=== PATIENT | female | born 1970 | race Caucasian/White ===

== ENCOUNTER 2016-08-20 21:35 | Emergency (ER) | payer MEDICAID ==
[2016-08-20] MEDS ORDERED: HYOSCYAMINE SULFATE ODT 0.125 MG TAB.SUBL SL ONE ×2 (22:03→23:30)
--- NOTE | 2016-08-20 22:04 | Emergency Department Record ---
History of Present Illness - General Chief Complaint: Abdominal Pain Stated Complaint: ABD PAIN Time Seen by Provider: 08/20/16 21:36 Source: Patient Mode of Arrival: Ambulatory Limitations: No limitations - History of Present Illness Initial Comments: 46 yo female presents to ED with a CC of lower quadrant pain that began earlier this morning. Patient describes her pain as "cramping", reports previous JUAN CARLOS, cholecystectomy, denies appendectomy. Patient denies fevers, chills, or change in stools. Patient denies history of diverticulitis. MD Complaint: Abdominal pain Onset/Timin -: Hour(s) Location: [facility] Radiation: None Migration to: No migration Quality: Stabbing Consistency: Constant Improves With: Nothing Worsens With: Other Associated Symptoms: Denies other symptoms - Related Data Home Medications Medication Instructions Recorded Confirmed Last Taken Naproxen [Naprosyn] 500 mg PO Q12H PRN 08/20/16 08/20/16 Unknown Previous Rx's Medication Instructions Recorded Cyclobenzaprine HCl [Flexeril] 10 mg PO TID #20 tablet 04/06/16 Hyoscyamine Sulfate [Levsin-Sl] 0.25 mg SL Q8H PRN #10 tab.subl 08/20/16 Allergies Allergy/AdvReac Type Severity Reaction Status Date / Time No Known Drug Allergies Allergy Verified 08/20/16 21:43 Travel Screening - Travel/Exposure Within Last 30 Days Have you traveled within the last 30 days?: No - Travel Symptoms Symptom Screening: None Review of Systems Constitutional: Denies: Chills, Fever, Malaise, Night sweats Eyes: Denies: Eye discharge, Eye pain ENT: Denies: Congestion, Ear pain, Epistaxis Respiratory: Denies: Cough, Dyspnea Cardiovascular: Denies: Chest pain, Dyspnea on exertion Endocrine: Denies: Fatigue, Heat or cold intolerance Gastrointestinal: Reports: Abdominal pain. Denies: Constipation, Nausea, Vomiting Genitourinary: Denies: Dysuria, Frequency, Hematuria, Incontinence Musculoskeletal: Denies: Arthralgia, Back pain, Gout, Joint swelling Skin: Denies: Bruising, Change in color Neurological: Denies: Abnormal gait, Confusion, Headache, Seizure Psychiatric: Denies: Anxiety Hematological/Lymphatic: Denies: Anemia, Blood Clots Past Medical History - SOCIAL HISTORY Smoking Status: Light tobacco smoker (<10/day) - RESPIRATORY Hx Respiratory Disorders: Yes Hx Asthma: Yes - CARDIOVASCULAR Hx Cardio Disorders: Yes Comment:: High cholesterol - NEURO Hx Neuro Disorders: Yes Hx Headaches: Yes - GI Hx GI Disorders: Yes Hx Reflux: Yes - Hx Genitourinary Disorders: No - ENDOCRINE Hx Endocrine Disorders: No - MUSCULOSKELETAL Hx Musculoskeletal Disorders: No - PSYCH Hx Psych Problems: Yes Hx Anxiety: Yes Hx Depression: Yes - HEMATOLOGY/ONCOLOGY Hx Hematology/Oncology Disorders: No Family Medical History Any Significant Family History?: Yes Hx Cancer: Grandparents *Cancer Comment: Uncle-colon Hx Stroke: Mother Physical Exam - General General Appearance: Alert, Oriented x3, Cooperative, No acute distress Limitations: No limitations - Head Head exam: Atraumatic, Normocephalic, Normal inspection Head exam detail: negative: Abrasion, Contusion, Sanchez's sign, General tenderness, Hematoma, Laceration - Eye Eye exam: Normal appearance. negative: Conjunctival injection, Periorbital swelling, Periorbital tenderness, Scleral icterus - ENT Ear exam: negative: Auricular hematoma, Auricular trauma Nasal Exam: negative: Active bleeding, Discharge, Dried blood, Foreign body Mouth exam: negative: Drooling, Laceration, Muffled voice, Tongue elevation - Neck Neck exam: Normal inspection. negative: Meningismus, Tenderness - Respiratory Respiratory exam: Normal lung sounds bilaterally. negative: Rales, Respiratory distress, Rhonchi, Stridor - Cardiovascular Cardiovascular Exam: Regular rate, Normal rhythm, Normal heart sounds - GI/Abdominal GI/Abdominal exam: Soft, Tenderness, Other (TTP LLQ, LUQ, epigastric region on examination). negative: Rebound, Rigid - Rectal Rectal exam: Deferred - exam: Deferred - Extremities Extremities exam: Normal inspection. negative: Pedal edema, Tenderness - Back Back exam: Denies: CVA tenderness (R), CVA tenderness (L) - Neurological Neurological exam: Alert, Normal gait, Oriented X3 - Psychiatric Psychiatric exam: Normal affect, Normal mood - Skin Skin exam: Normal color. negative: Abrasion Type of lesion: negative: abrasion Course - Reevaluation(s) Reevaluation #1: 08/20/16 23:04 Labs reviewed and are grossly unremarkable for an acute process. Reevaluation #2: 08/20/16 23:07 Ct Abdomen and Pelvis: 3.8 cm cystic mass left colon, diverticulosis without diverticulitis. Post-op justin and hysterectomy, normal appendix. Reevaluation #3: 08/20/16 23:12 Patient reassessed, reports that her abdominal pain symptoms are greatly improved. Patient denies any vaginal discharge symptoms as well. Will d/c home on Levsin as needed with instructions to return to ED for any worsening of her symptoms, and to follow-up with her PCP for outpatient US of the abdomen in 2-4 weeks to further evaluate her ovarian cyst. Medical Decision Making - Lab Data Result diagrams: 08/20/16 22:08 08/20/16 22:08 Disposition Disposition: Discharge Clinical Impression: Abdominal pain Qualifiers: Abdominal location: generalized Qualified Code(s): R10.84 - Generalized abdominal pain Disposition: Home, Self-Care Condition: (2) Stable Instructions: Abdominal Pain (ED), Ovarian Cyst (ED) Additional Instructions: Return to ED if your symptoms worsen or if you have any concerns. Follow-up with your family doctor in 3-5 days as directed. Prescriptions: Hyoscyamine Sulfate [Levsin-Sl] 0.25 mg SL Q8H PRN #10 tab.subl PRN Reason: Abdominal Pain Forms: Patient Portal Access Time of Disposition: 23:09
[2016-08-20] MEDS ORDERED: 0.9 % SODIUM CHLORIDE 1000ML 1,000 ML IV SCH (22:15)
[2016-08-20 22:26] LABS: URINE APPEARANCE CLEAR; URINE BILIRUBIN NEGATIVE (NEGATIVE); URINE BLOOD TRACE-L (NEGATIVE); URINE COLOR YELLOW; URINE GLUCOSE (UA) NEGATIVE (NEGATIVE); URINE KETONE NEGATIVE (NEGATIVE); URINE LEUKOCYTE ESTERASE NEGATIVE (NEGATIVE); URINE NITRITE NEGATIVE (NEGATIVE); URINE PROTEIN NEGATIVE (NEGATIVE); URINE UROBILINOGEN 0.2 E.U./dL (0.20 - 1.00)
[2016-08-20 22:27] LABS: BASO % 0.3 % (0-6); EOS % 2.6 % (0-6); GRAN % 51.6 % (47-80); HEMATOCRIT 44.2 % (35.0-47.0); HEMOGLOBIN 14.6 gm/dl (11.6-16.0); LYMPH % 37.7 % (16-45); MEAN CELL VOLUME 91.3 fl (81-97); MEAN CORPUSCULAR HEMOGLOBIN 30.2 pg (27-33); MEAN PLATELET VOLUME 10.6 fl (7.4-10.4); MONO % 7.8 % (0-9); PLATELET COUNT 302 K/uL (130-400); RED BLOOD COUNT 4.84 M/uL (3.80-5.40); RED CELL DISTRIBUTION WIDTH 12.4 % (11.5-14.5); WHITE BLOOD COUNT W/O DIFF 12.2 K/uL (4.2-12.2)
[2016-08-20 22:35] LABS: ALB/GLOB RATIO 1.4 (1.1-1.8); ALBUMIN 3.9 gm/dL (3.5-5.0); ALKALINE PHOSPHATASE 95 U/L (38-126); ALT/SGPT 37 U/L (9-52); ANION GAP 7.9 (7-16); AST/SGOT 18 U/L (14-36); BILIRUBIN,TOTAL 0.23 mg/dL (0.2-1.3); BLOOD UREA NITROGEN 19 mg/dL (7-17); CARBON DIOXIDE 23.1 mmol/L (22-30); CREATININE 0.7 mg/dL (0.52-1.04); EST GLOMERULAR FILTRATION RATE > 60 ml/min; GLUCOSE,RANDOM 83 mg/dL (70-110); LIPASE 108 U/L (23-300); TOTAL PROTEIN 6.7 gm/dL (6.3-8.2)
[2016-08-20 22:39] LABS: URINE EPITHELIAL CELLS 0 - 2 (FEW); URINE RBC 0 - 2 (NONE SEEN); URINE WBC 0 - 2 (0-2/hpf)
== END 2016-08-20 23:33 | disposition home or self-care (01) ==
LOC: ER 21:35
DX: R10.32 Left lower quadrant pain (principal)
CPT/HCPCS: 99284 ×2; 83690; 85025; 80053; 81001; 74177; Q9967; J1980; J7030

== ENCOUNTER 2017-01-15 17:56 | Emergency (ER) | payer MEDICAID ==
--- NOTE | 2017-01-15 18:32 | Emergency Department Record ---
History of Present Illness - General Chief Complaint: Cough Stated Complaint: COUGH,ABDI,RIB PAIN Time Seen by Provider: 01/15/17 18:29 Source: Patient Mode of Arrival: Ambulatory Limitations: No limitations - History of Present Illness Initial Comments: 46 yo female presents to ED with a CC of cough, sore throat, and headache symptoms for the past 3 days. Patient reports a frequent history of bronchitis and pneumonia, denies recent fever symptoms. Patient does report history of asthma, reports that she is out of several of her home medications. MD Complaint: Cough Onset/Timin -: Week(s) Severity: Moderate Severity scale (1-10): 9 Quality: Aching Consistency: Constant, Getting worse Improves With: Nothing Worsens With: Deep breaths Associated Symptoms: Headache Treatments Prior to Arrival: None - Related Data Previous Rx's Medication Instructions Recorded Hyoscyamine Sulfate [Levsin-Sl] 0.25 mg SL Q8H PRN #10 tab.subl 08/20/16 Albuterol Sulfate [Proair Hfa] 1 - 2 puff IH .EVERY 4-6 HOURS PRN 01/15/17 #1 inhaler Benzonatate [Tessalon] 2 cap PO Q8H PRN #30 cap 01/15/17 Prednisone [Prednisone 20Mg] 20 mg PO TID #15 tab 01/15/17 Allergies Allergy/AdvReac Type Severity Reaction Status Date / Time No Known Drug Allergies Allergy Verified 01/15/17 18:13 Travel Screening - Travel/Exposure Within Last 30 Days Have you traveled within the last 30 days?: No - Travel Symptoms Symptom Screening: None Review of Systems Constitutional: Denies: Chills, Fever, Malaise, Night sweats Eyes: Denies: Eye discharge, Eye pain ENT: Reports: Congestion. Denies: Ear pain, Epistaxis Respiratory: Reports: Cough. Denies: Dyspnea Cardiovascular: Denies: Chest pain, Dyspnea on exertion Endocrine: Denies: Fatigue, Heat or cold intolerance Gastrointestinal: Denies: Abdominal pain, Nausea, Vomiting Genitourinary: Denies: Incontinence, Retention Musculoskeletal: Denies: Arthralgia, Back pain, Gout, Joint swelling Skin: Denies: Bruising, Change in color Neurological: Denies: Abnormal gait, Confusion, Headache, Seizure Psychiatric: Denies: Anxiety Hematological/Lymphatic: Denies: Anemia, Blood Clots Past Medical History - SOCIAL HISTORY Smoking Status: Light tobacco smoker (<10/day) - RESPIRATORY Hx Respiratory Disorders: Yes Hx Asthma: Yes - CARDIOVASCULAR Hx Cardio Disorders: Yes Comment:: High cholesterol - NEURO Hx Neuro Disorders: Yes Hx Headaches: Yes - GI Hx GI Disorders: Yes Hx Reflux: Yes - Hx Genitourinary Disorders: No - ENDOCRINE Hx Endocrine Disorders: No - MUSCULOSKELETAL Hx Musculoskeletal Disorders: No - PSYCH Hx Psych Problems: Yes Hx Anxiety: Yes Hx Depression: Yes - HEMATOLOGY/ONCOLOGY Hx Hematology/Oncology Disorders: No Family Medical History Any Significant Family History?: Yes Hx Cancer: Grandparents *Cancer Comment: Uncle-colon Hx Stroke: Mother Physical Exam - General General Appearance: Alert, Oriented x3, Cooperative Limitations: No limitations - Head Head exam: Atraumatic, Normocephalic, Normal inspection Head exam detail: negative: Abrasion, Contusion, Sanchez's sign, General tenderness, Hematoma, Laceration - Eye Eye exam: Normal appearance. negative: Conjunctival injection, Periorbital swelling, Periorbital tenderness, Scleral icterus - ENT Ear exam: negative: Auricular hematoma, Auricular trauma Nasal Exam: negative: Active bleeding, Discharge, Dried blood, Foreign body Mouth exam: negative: Drooling, Laceration, Muffled voice, Tongue elevation - Neck Neck exam: Normal inspection. negative: Meningismus, Tenderness - Respiratory Respiratory exam: Normal lung sounds bilaterally. negative: Rales, Respiratory distress, Rhonchi, Stridor - Cardiovascular Cardiovascular Exam: Regular rate, Normal rhythm, Normal heart sounds - GI/Abdominal GI/Abdominal exam: Soft. negative: Rebound, Rigid, Tenderness - Rectal Rectal exam: Deferred - exam: Deferred - Extremities Extremities exam: Normal inspection. negative: Calf tenderness, Pedal edema, Tenderness - Back Back exam: Denies: CVA tenderness (R), CVA tenderness (L) - Neurological Neurological exam: Alert, Normal gait, Oriented X3 - Psychiatric Psychiatric exam: Normal affect, Normal mood - Skin Skin exam: Normal color. negative: Abrasion Type of lesion: negative: abrasion Course Vital Signs 01/15/17 18:13 Temperature 98.8 F Pulse Rate 88 Respiratory 18 Rate Blood Pressure 108/88 Pulse Ox 95 - Reevaluation(s) Reevaluation #1: 01/15/17 18:52 EKG: NSR 74 Normal axis, normal intervals No acute ST-T wave changes Unchanged from 01/21/15 Reevaluation #2: Influenza: Negative CXR: No acute process Patient was updated on all results, appears to be resting comfortably and appears stable for discharge with treatment for acute bronchitis with Prednisone , Albuterol, and Tessalon Perles for her cough symptoms. Disposition Disposition: Discharge Clinical Impression: Bronchitis Disposition: Home, Self-Care Condition: (2) Stable Instructions: Acute Bronchitis (ED) Additional Instructions: Return to ED if your symptoms worsen or if you have any concerns. Albuterol, Prednisone, and Tessalon as directed. Follow-up with your family doctor in 3-5 days as directed. Prescriptions: Albuterol Sulfate [Proair Hfa] 1 - 2 puff IH .EVERY 4-6 HOURS PRN #1 inhaler PRN Reason: Difficulty In Breathing Benzonatate [Tessalon] 2 cap PO Q8H PRN #30 cap PRN Reason: Cough Prednisone [Prednisone 20Mg] 20 mg PO TID #15 tab Forms: Patient Portal Access Time of Disposition: 18:59 Quality - Quality Measures Quality Measures: N/A - Blood Pressure Screening Does Patient Have Any of the Following: No Blood Pressure Classification: Normal BP Reading Systolic Measurement: 107 Diastolic Measurement: 78 Screening for High Blood Pressure: < Normal BP, F/U Not Required > [G8783]
[2017-01-15 18:51] LABS: INFLUENZA A NEGATIVE (NEGATIVE); INFLUENZA B NEGATIVE (NEGATIVE)
== END 2017-01-15 19:14 | disposition home or self-care (01) ==
LOC: ER 17:56
DX: J20.9 Acute bronchitis, unspecified (principal); R05 Cough; R07.81 Pleurodynia; J02.9 Acute pharyngitis, unspecified; F17.210 Nicotine dependence, cigarettes, uncomplicated
CPT/HCPCS: 71020; 87400; 93005; 93010; 99284

== ENCOUNTER 2017-01-25 18:05 | Emergency (ER) | payer MEDICAID ==
--- NOTE | 2017-01-25 19:36 | Emergency Department Record ---
History of Present Illness - General Chief complaint: Lower Extremity Pain Stated complaint: BACK OF UPPER RT LEG PAIN/NUMBNESS AT TIMES Time Seen by Provider: 01/25/17 19:33 Source: Patient Mode of Arrival: Ambulatory Limitations: No limitations - History of Present Illness Initial comments: 46 yo female presents to ED with a CC of right posterior thigh pain following injury last night. Patient reports attempting to perform a cartwheel last night for a family member, but upon landing she felt a "pop" in her right thigh and reports mild swelling/pain since the injury. Patient reports that she has been able to ambulate however it has been painful, advil and tylenol have not been helping much. Patient denies other injury, and denies the use of blood thinner medications. Patient reports full strength of the right lower extremity , however lower extremity extension is painful. MD Complaint: Extremity pain Onset/Timin -: Days(s) Location: Right, Thigh -: Yes Myalgia Radiation: Proximal Quality: Other ("throbbing") Consistency: Constant Improves with: Nothing Worsens with: Walking Associated Symptoms: Denies other symptoms - Related Data Previous Rx's Medication Instructions Recorded Hydrocodone/Acetaminophen [Entiat 1 tab PO Q6H PRN #12 tab 01/25/17 5mg/325mg] Naproxen [Naprosyn] 500 mg PO Q12H #30 tab. 01/25/17 Allergies Allergy/AdvReac Type Severity Reaction Status Date / Time No Known Drug Allergies Allergy Verified 01/15/17 18:13 Travel Screening - Travel/Exposure Within Last 30 Days Have you traveled within the last 30 days?: No Review of Systems Constitutional: Denies: Chills, Fever, Malaise, Night sweats Eyes: Denies: Eye discharge, Eye pain ENT: Denies: Congestion, Ear pain, Epistaxis Respiratory: Denies: Cough, Dyspnea Cardiovascular: Denies: Chest pain, Dyspnea on exertion Endocrine: Denies: Fatigue, Heat or cold intolerance Gastrointestinal: Denies: Abdominal pain, Nausea, Vomiting Genitourinary: Denies: Incontinence, Retention Musculoskeletal: Reports: Myalgia. Denies: Arthralgia, Back pain, Gout, Joint swelling Skin: Denies: Bruising, Change in color Neurological: Denies: Abnormal gait, Confusion, Headache, Numbness, Tingling Psychiatric: Denies: Anxiety Hematological/Lymphatic: Denies: Anemia, Blood Clots Past Medical History - SOCIAL HISTORY Smoking Status: Light tobacco smoker (<10/day) Alcohol Use: None Drug Use: None - RESPIRATORY Hx Respiratory Disorders: Yes Hx Asthma: Yes - CARDIOVASCULAR Hx Cardio Disorders: Yes Comment:: High cholesterol - NEURO Hx Neuro Disorders: Yes Hx Headaches: Yes - GI Hx GI Disorders: Yes Hx Reflux: Yes - Hx Genitourinary Disorders: No - ENDOCRINE Hx Endocrine Disorders: No - MUSCULOSKELETAL Hx Musculoskeletal Disorders: No - PSYCH Hx Psych Problems: Yes Hx Anxiety: Yes Hx Depression: Yes - HEMATOLOGY/ONCOLOGY Hx Hematology/Oncology Disorders: No Family Medical History Any Significant Family History?: Yes Hx Cancer: Grandparents *Cancer Comment: Uncle-colon Hx Stroke: Mother Physical Exam - General General Appearance: Alert, Oriented x3, Cooperative, Mild distress Limitations: No limitations - Head Head exam: Atraumatic, Normocephalic, Normal inspection Head exam detail: negative: Abrasion, Contusion, Sanchez's sign, General tenderness, Hematoma, Laceration - Eye Eye exam: Normal appearance. negative: Conjunctival injection, Periorbital swelling, Periorbital tenderness, Scleral icterus - ENT Ear exam: negative: Auricular hematoma, Auricular trauma Nasal Exam: negative: Active bleeding, Discharge, Dried blood, Foreign body Mouth exam: negative: Drooling, Laceration, Muffled voice, Tongue elevation - Neck Neck exam: Normal inspection. negative: Meningismus, Tenderness - Respiratory Respiratory exam: Normal lung sounds bilaterally. negative: Respiratory distress, Rhonchi, Stridor, Wheezes - Cardiovascular Cardiovascular Exam: Regular rate, Normal rhythm, Normal heart sounds Peripheral Pulses: 3+: Dorsalis Pedis (R) - GI/Abdominal GI/Abdominal exam: Soft. negative: Rebound, Rigid, Tenderness - Rectal Rectal exam: Deferred - exam: Deferred - Extremities Extremities exam: Full ROM, Tenderness, Other (TTP along the posterior/proximal right thigh c/w strain or partial tear of the hamstring muscles, FROM below the thigh, although pain is elicited with lower extremity extension on examination.) . negative: Calf tenderness, Pedal edema - Back Back exam: Denies: CVA tenderness (R), CVA tenderness (L) - Neurological Neurological exam: Alert, Normal gait, Oriented X3 - Psychiatric Psychiatric exam: Normal affect, Normal mood - Skin Skin exam: Normal color. negative: Abrasion Type of lesion: negative: abrasion Course Vital Signs 01/25/17 19:12 Temperature 98.1 F Pulse Rate 75 Respiratory 18 Rate Blood Pressure 113/68 Pulse Ox 98 - Reevaluation(s) Reevaluation #1: 01/25/17 19:42 History and physical examination appear c/w hamstring strain vs. partial tear. Will treat the patient symptomatically with instructions to follow-up with her PCP in [place] for further evaluation in 1 week if symptoms fail to improve. Radiographs are not fel to be of benefit as patient has no hip/pelvis pain on examination. Disposition Disposition: Discharge Clinical Impression: Right hamstring muscle strain Qualifiers: Encounter type: initial encounter Qualified Code(s): S76.311A - Strain of muscle, fascia and tendon of the posterior muscle group at thigh level, right thigh, initial encounter Disposition: Home, Self-Care Condition: (2) Stable Instructions: Hamstring Injury (ED) Additional Instructions: Return to ED if your symptoms worsen or if you have any concerns. Entiat and Naprosyn as directed. Follow-up with your family doctor in 5-7 days. Prescriptions: Hydrocodone/Acetaminophen [Entiat 5mg/325mg] 1 tab PO Q6H PRN #12 tab PRN Reason: Pain - General Naproxen [Naprosyn] 500 mg PO Q12H #30 tab.dr Forms: Patient Portal Access Time of Disposition: 19:35 Quality - Quality Measures Quality Measures: N/A - Blood Pressure Screening Does Patient Have Any of the Following: No Blood Pressure Classification: Normal BP Reading Systolic Measurement: 113 Diastolic Measurement: 68 Screening for High Blood Pressure: < Normal BP, F/U Not Required > [G8783]
== END 2017-01-25 19:57 | disposition home or self-care (01) ==
LOC: ER 18:05
DX: S76.311A Strain of muscle, fascia and tendon of the posterior muscle group at thigh level, right thigh, initial encounter (principal); X50.0XXA Overexertion from strenuous movement or load, initial encounter
CPT/HCPCS: 99282

== ENCOUNTER 2017-06-02 13:18 | Emergency (ER) | payer MEDICAID ==
--- NOTE | 2017-06-02 13:40 | Emergency Department Record ---
History of Present Illness - General Chief Complaint: Dizziness Stated Complaint: PAIN IN ARM AND WEAKNESS Time Seen by Provider: 06/02/17 13:34 Source: Patient, RN notes reviewed Mode of Arrival: Ambulatory - History of Present Illness Initial Comments: vomited times one and diarrhea times one. patient fell and bodyaches. She is complaining about right shoulder pain.She has a cough which attributes to smoking cigarettes. She hurt her shoulder right with the fall. No head trauma. She called the [facility] they told her to go to the ED to get her heart checked out. patient denies chest pain MD Complaint: Dizziness History of Trauma: No Improves With: Nothing Worsens With: Nothing - [place] Coma Scale Eye Response: (4) Open spontaneously Motor Response: (6) Obeys commands Verbal Response: (5) Oriented [place] Total: 15 - Symptoms of Stroke Onset of Symptoms Date: 06/02/17 Onset of Symptoms Time: 12:30 Symptoms of stroke: Dizziness - Related Data Previous Rx's Medication Instructions Recorded Hydrocodone/Acetaminophen [Stratton 1 tab PO Q6H PRN #12 tab 01/25/17 5mg/325mg] Naproxen [Naprosyn] 500 mg PO Q12H #30 tab. 01/25/17 Ondansetron HCl [Zofran] 4 mg PO Q6HR #10 tablet 06/02/17 Allergies Allergy/AdvReac Type Severity Reaction Status Date / Time No Known Drug Allergies Allergy Unverified 01/27/17 11:37 Travel Screening - Travel/Exposure Within Last 30 Days Have you traveled within the last 30 days?: No - Travel/Exposure Within Last Year Have you traveled outside the [place] in the last year?: No - Additonal Travel Details Have you been exposed to anyone with a communicable illness?: No - Travel Symptoms Symptom Screening: None Review of Systems Reviewed: No additional complaints except as noted below Constitutional: Reports: As per HPI. Denies: Chills, Fever, Malaise, Night sweats, Weakness, Weight change Eyes: Reports: As per HPI. Denies: Eye discharge, Eye pain, Photophobia, Vision change ENT: Reports: As per HPI, Congestion. Denies: Dental pain, Ear pain, Epistaxis , Hearing loss, Throat pain Respiratory: Reports: As per HPI, Cough. Denies: Dyspnea, Hemoptysis, Stridor, Wheezes Cardiovascular: Reports: As per HPI. Denies: Arrhythmia, Chest pain, Dyspnea on exertion, Edema, Murmurs, Orthopnea, Palpitations, Paroxysmal nocturnal dyspnea, Rheumatic Fever, Syncope Endocrine: Reports: As per HPI, Fatigue. Denies: Heat or cold intolerance, Polydipsia, Polyuria Gastrointestinal: Reports: As per HPI, Diarrhea, Vomiting. Denies: Abdominal pain, Constipation, Hematemesis, Hematochezia, Melena, Nausea Genitourinary: Reports: As per HPI. Denies: Abnormal menses, Discharge, Dyspareunia, Dysuria, Frequency, Hematuria, Incontinence, Retention, Urgency Musculoskeletal: Reports: As per HPI, Other (right shoulder pain). Denies: Arthralgia, Back pain, Gout, Joint swelling, Myalgia, Neck pain Skin: Reports: As per HPI. Denies: Bruising, Change in color, Change in hair/ nails, Lesions, Pruritus, Rash Neurological: Reports: As per HPI. Denies: Abnormal gait, Confusion, Headache, Numbness, Paresthesias, Seizure, Tingling, Tremors, Vertigo, Weakness Psychiatric: Reports: As per HPI. Denies: Anxiety, Auditory hallucinations, Depression, Homicidal thoughts, Suicidal thoughts, Visual hallucinations Hematological/Lymphatic: Reports: As per HPI. Denies: Anemia, Blood Clots, Easy bleeding, Easy bruising, Swollen glands Past Medical History - SOCIAL HISTORY Smoking Status: Light tobacco smoker (<10/day) Alcohol Use: None Drug Use: None - RESPIRATORY Hx Respiratory Disorders: Yes Hx Asthma: Yes - CARDIOVASCULAR Hx Cardio Disorders: Yes Comment:: High cholesterol - NEURO Hx Neuro Disorders: Yes Hx Headaches: Yes - GI Hx GI Disorders: Yes Hx Reflux: Yes - Hx Genitourinary Disorders: No - ENDOCRINE Hx Endocrine Disorders: No - MUSCULOSKELETAL Hx Musculoskeletal Disorders: No - PSYCH Hx Psych Problems: Yes Hx Anxiety: Yes Hx Depression: Yes - HEMATOLOGY/ONCOLOGY Hx Hematology/Oncology Disorders: No Family Medical History Any Significant Family History?: No Hx Cancer: Grandparents *Cancer Comment: Uncle-colon Hx Stroke: Mother Physical Exam - General General Appearance: Alert, Oriented x3, Cooperative, Mild distress - Head Head exam: Normal inspection - Eye Eye exam: Normal appearance, PERRL Pupils: Normal accommodation - ENT ENT exam: Normal exam, Mucous membranes moist, Normal external ear exam, Normal orophraynx, TM's normal bilaterally Ear exam: Normal external inspection. negative: External canal tenderness Nasal Exam: Normal inspection. negative: Discharge, Sinus tenderness Mouth exam: Normal external inspection, Tongue normal Teeth exam: Normal inspection. negative: Dental caries Throat exam: Normal inspection. negative: Tonsillar erythema, Tonsillar exudate - Neck Neck exam: Normal inspection, Full ROM. negative: Tenderness - Respiratory Respiratory exam: Normal lung sounds bilaterally. negative: Respiratory distress - Cardiovascular Cardiovascular Exam: Regular rate, Normal rhythm, Normal heart sounds - GI/Abdominal GI/Abdominal exam: Soft, Normal bowel sounds. negative: Tenderness - Rectal Rectal exam: Deferred - exam: Deferred - Extremities Extremities exam: Normal inspection, Full ROM, Normal capillary refill, Tenderness (right shoulder pain worse with palpation and motion of the shoulder. ) - Back Back exam: Reports: Normal inspection, Full ROM. Denies: Muscle spasm, Rash noted, Tenderness - Neurological Neurological exam: Alert, Normal gait, Oriented X3, Reflexes normal - Psychiatric Psychiatric exam: Normal affect, Normal mood - Skin Skin exam: Dry, Intact, Normal color, Warm Course Vital Signs 06/02/17 13:24 Temperature 97.6 F Pulse Rate 79 Respiratory 16 Rate Blood Pressure 96/56 Pulse Ox 97 explained findings to the patient and she now says she had some chest pain at home which lasted about 15 minutes after her fall along with the shoulder pain. currently the patient denies chest pain. - Reevaluation(s) Reevaluation #1: discussed case with Dr. Starr and he wanted a second troponin T in 3 hours and if up he recommended transferring to [facility] if normal follow up outpatient with Dr. Devang Starr at [facility] or she could see Dr Starr in [place] tomorrow for outpatient stress testing. 06/02/17 15:24 Medical Decision Making - Data Complexity MDM Data: EKG Ordered and/or Reviewed (No acute changes) - Lab Data Result diagrams: 06/02/17 13:55 06/02/17 13:55 Disposition Clinical Impression: Elevated CK-MB level, Viral syndrome Vomiting Qualifiers: Vomiting type: unspecified Vomiting Intractability: non-intractable Nausea presence: with nausea Qualified Code(s): R11.2 - Nausea with vomiting, unspecified Diarrhea Qualifiers: Diarrhea type: unspecified type Qualified Code(s): R19.7 - Diarrhea, unspecified Disposition: Home, Self-Care Condition: (1) Good Instructions: Viral Syndrome (ED), Gastroenteritis (ED) Additional Instructions: follow up with Dr. Devang Starr on for out patient evaluation tylenol for pain Prescriptions: Ondansetron HCl [Zofran] 4 mg PO Q6HR #10 tablet Forms: Patient Portal Access Time of Disposition: 17:37 Quality - Quality Measures Quality Measures: N/A - Blood Pressure Screening Does Patient Have Any of the Following: No Blood Pressure Classification: Normal BP Reading Systolic Measurement: 96 Diastolic Measurement: 56 Screening for High Blood Pressure: < Normal BP, F/U Not Required > [G8783] Pre-Hypertensive Follow-up Interventions: Referral to alternative/primary care provider.
[2017-06-02 14:04] LABS: HEMATOCRIT 47.6 % (35.0-47.0); MEAN CELL VOLUME 91.4 fl (81-97); MEAN CORPUSCULAR HEMOGLOBIN 30.7 pg (27-33); MEAN CORPUSCULAR HGB CONC 33.6 g/dl (32-36); MEAN PLATELET VOLUME 10.3 fl (7.4-10.4); PLATELET COUNT 290 K/uL (130-400); RED BLOOD COUNT 5.21 M/uL (3.80-5.40); RED CELL DISTRIBUTION WIDTH 12.6 % (11.5-14.5)
[2017-06-02 14:13] LABS: BLOOD UREA NITROGEN 25 mg/dL (6-20); CREATININE 0.8 mg/dL (0.5-0.9); EST GLOMERULAR FILTRATION RATE > 60 mL/min
[2017-06-02 14:16] LABS: INFLUENZA A NEGATIVE (NEGATIVE); INFLUENZA B NEGATIVE (NEGATIVE)
[2017-06-02 14:16] LABS: GLUCOSE,RANDOM 123 mg/dL (74-109); PLATELET ESTIMATE NORMAL (NORMAL)
[2017-06-02] MEDS: 0.9 % SODIUM CHLORIDE 1000ML 1,000 ML IV SCH (14:17)
[2017-06-02] MEDS: ASPIRIN 81 MG CHEWABLE TABLET PO ONE (15:05)
[2017-06-02 15:34] LABS: TOTAL PROTEIN 6.7 g/dL (6.6-8.7)
[2017-06-02 15:39] LABS: ALBUMIN 4.2 g/dL (4.0-5.0); ALKALINE PHOSPHATASE 68 U/L (35-104); ALT/SGPT 20 U/L (<33); AST/SGOT 18 U/L (10.0-35.0); LIPASE 61 U/L (13-60)
[2017-06-02 15:50] LABS: BILIRUBIN,DIRECT < 0.2 mg/dL (0-0.3)
[2017-06-02 16:28] LABS: AMPHETAMINE SCREEN URINE NOT DETECTED; BARBITURATE SCREEN URINE NOT DETECTED; BENZODIAZEPINE SCREEN URINE NOT DETECTED; COCAINE SCREEN URINE NOT DETECTED; METHADONE SCREEN URINE NOT DETECTED; METHAMPHETAMINE SCREEN NOT DETECTED; OPIATE SCREEN URINE NOT DETECTED; OXYCODONE SCREEN URINE NOT DETECTED; PHENCYCLIDINE SCREEN URINE NOT DETECTED; PROPOXYPHENE SCREEN URINE NOT DETECTED; THC SCREEN URINE NOT DETECTED; TRICYCLIC ANTIDEPRESSANT SCRN NOT DETECTED
[2017-06-02] MEDS: ONDANSETRON HCL IV 4 MG/2 ML VIAL IVP ONE (16:58)
--- NOTE | 2017-06-03 08:04 | RADIOLOGY REPORT ---
EXAM: CHEST, TWO VIEWS HISTORY: NONPRODUCTIVE COUGH. DIZZINESS. TECHNIQUE: Upright PA and lateral views of the chest were obtained. Comparison: Two view chest radiographic examination dated 01/15/18. FINDINGS: The heart remains normal in size and the pulmonary vasculature is nondilated. The lungs and pleural spaces are clear. Mild degenerative changes are scattered within the visualized spine. Minor levoconvex curvature of the upper thoracic spine. IMPRESSION: NO RADIOGRAPHIC EVIDENCE OF ACUTE CARDIOPULMONARY DISEASE. JOB NUMBER: [id number] [facility]
--- NOTE | 2017-06-03 08:23 | RADIOLOGY REPORT ---
EXAM: RIGHT SHOULDER COMPLETE HISTORY: ANTERIOR SHOULDER PAIN AND LEFT NECK PAIN POST FALL. TECHNIQUE: Internal and external humerus rotation AP views of the right shoulder were obtained as well as a scapular Y-view. Comparison: None. Encounter: Initial. FINDINGS: There is normal bone mineralization. No fracture, dislocation, or destructive bone lesion is seen. No acromioclavicular joint space widening is seen. The articular relations are grossly maintained. No focal soft tissue abnormality. IMPRESSION: NO ACUTE FRACTURE NOR DISLOCATION. NO GROSS ACROMIOCLAVICULAR JOINT SPACE WIDENING. [facility]BER: [id number] [facility]
== END 2017-06-02 17:49 | disposition home or self-care (01) ==
LOC: ER 13:18
DX: R79.89 Other specified abnormal findings of blood chemistry (principal); R74.8 Abnormal levels of other serum enzymes; R42 Dizziness and giddiness; R19.7 Diarrhea, unspecified; R11.2 Nausea with vomiting, unspecified; M25.511 Pain in right shoulder; M54.2 Cervicalgia; R05 Cough; B34.9 Viral infection, unspecified; F17.210 Nicotine dependence, cigarettes, uncomplicated
CPT/HCPCS: 71046; 80048; 80076; 80305; 82550; 82553; 83690; 84484; 85027; 85730; 87400; 93005; 93010; 96374; 99284; J2405; J7030

== ENCOUNTER 2017-09-01 20:48 | Emergency (ER) | payer MEDICAID ==
--- NOTE | 2017-09-01 21:13 | Emergency Department Record ---
History of Present Illness - General Chief complaint: Extremity Problem Stated complaint: NUMBNESS IN BOTH LEGS THEN SHOOTING PAINS WHEN FEE Time Seen by Provider: 09/01/17 21:04 Source: Patient Mode of Arrival: Ambulatory Limitations: No limitations - History of Present Illness Initial comments: 47 yo female presents to ED for evaluation of intermittent rfzn-[id number]-kawlhfn sensation to the thighs anteriorly bilaterally. Patient reports that she was reclined in a chair when her symptoms began. Patient denies weakness to the lower extremities, swelling, or back pain symptoms. Patient denies numbness over the groin or urinary retention symptoms. Patient denies any trauma of injury. Patient does report intermittent symptoms previously as well. MD Complaint: Other ("numbness") Onset/Timin -: Minutes(s) Location: Bilateral, Thigh History of Same: Yes Radiation: Distal Severity scale (1-10): 6 Quality: Aching Consistency: Constant Improves with: Nothing Worsens with: Walking, Weight bearing Associated Symptoms: Denies other symptoms - Related Data Previous Rx's Medication Instructions Recorded Ondansetron HCl [Zofran] 4 mg PO Q6HR #10 tablet 06/02/17 Allergies Allergy/AdvReac Type Severity Reaction Status Date / Time No Known Drug Allergies Allergy Unverified 01/27/17 11:37 Travel Screening - Travel/Exposure Within Last 30 Days Have you traveled within the last 30 days?: No - Travel Symptoms Symptom Screening: None Review of Systems Constitutional: Denies: Chills, Fever, Malaise, Night sweats Eyes: Denies: Eye discharge, Eye pain ENT: Denies: Congestion, Ear pain, Epistaxis Respiratory: Denies: Cough, Dyspnea Cardiovascular: Denies: Chest pain, Dyspnea on exertion Endocrine: Denies: Fatigue, Heat or cold intolerance Gastrointestinal: Denies: Abdominal pain, Nausea, Vomiting Genitourinary: Denies: Incontinence, Retention Musculoskeletal: Denies: Arthralgia, Back pain, Gout, Joint swelling Skin: Denies: Bruising, Change in color, Change in hair/nails, Rash Neurological: Reports: Numbness. Denies: Abnormal gait, Confusion, Headache, Seizure, Tingling, Tremors, Weakness Psychiatric: Denies: Anxiety Hematological/Lymphatic: Denies: Anemia, Blood Clots Past Medical History - SOCIAL HISTORY Smoking Status: Light tobacco smoker (<10/day) Alcohol Use: None Drug Use: None - RESPIRATORY Hx Respiratory Disorders: Yes Hx Asthma: Yes - CARDIOVASCULAR Hx Cardio Disorders: Yes Comment:: High cholesterol - NEURO Hx Neuro Disorders: Yes Hx Headaches: Yes - GI Hx GI Disorders: Yes Hx Reflux: Yes - Hx Genitourinary Disorders: No - ENDOCRINE Hx Endocrine Disorders: No - MUSCULOSKELETAL Hx Musculoskeletal Disorders: No - PSYCH Hx Psych Problems: Yes Hx Anxiety: Yes Hx Depression: Yes - HEMATOLOGY/ONCOLOGY Hx Hematology/Oncology Disorders: No Family Medical History Any Significant Family History?: Yes Hx Cancer: Grandparents *Cancer Comment: Uncle-colon Hx Stroke: Mother Physical Exam - General General Appearance: Alert, Oriented x3, Cooperative, No acute distress Limitations: No limitations - Head Head exam: Atraumatic, Normocephalic, Normal inspection Head exam detail: negative: Abrasion, Contusion, Sanchez's sign, General tenderness, Hematoma, Laceration - Eye Eye exam: Normal appearance. negative: Conjunctival injection, Periorbital swelling, Periorbital tenderness, Scleral icterus - ENT Ear exam: negative: Auricular hematoma, Auricular trauma Nasal Exam: negative: Active bleeding, Discharge, Dried blood, Foreign body Mouth exam: negative: Drooling, Laceration, Muffled voice, Tongue elevation - Neck Neck exam: Normal inspection. negative: Meningismus, Tenderness - Respiratory Respiratory exam: Normal lung sounds bilaterally. negative: Rales, Respiratory distress, Rhonchi, Stridor - Cardiovascular Cardiovascular Exam: Regular rate, Normal rhythm, Normal heart sounds - GI/Abdominal GI/Abdominal exam: Soft. negative: Rebound, Rigid, Tenderness - Rectal Rectal exam: Deferred - exam: Deferred - Extremities Extremities exam: Normal inspection. negative: Pedal edema, Tenderness - Back Back exam: Denies: CVA tenderness (R), CVA tenderness (L) - Neurological Neurological exam: Alert, CN II-XII intact, Normal gait, Oriented X3, Other ( Patient has 5/5 and symmetric dorsiflexion/plantar flexion on examination, can raise and hold each lower extremity for > 5 seconds without drift or weakness. Sensation is intact grossly to the anterior/lateral thighs bilaterally, and the patient ambulates with steady gait.). negative: Motor sensory deficit - Psychiatric Psychiatric exam: Normal affect, Normal mood - Skin Skin exam: Normal color. negative: Abrasion Type of lesion: negative: abrasion Course Vital Signs 09/01/17 20:57 Temperature 98.1 F Pulse Rate [ 97 H Pulse Ox Probe] Respiratory 18 Rate Blood Pressure 113/84 [Left Arm] Pulse Ox 97 - Reevaluation(s) Reevaluation #1: 09/01/17 21:19 Patient was seen and examined, has no acute neurologic disability or vascular abnormality on examination. Straight leg raise is normal without drift/weakness Plantar/dorsiflexion are 5/5 and symmetric Gross sensation in intact to the thigh bilaterally NIH stroke scale is 0. Bilateral DPP are 3+ and symmetric bilaterally. No lower extremity edema or calf-pain symptoms are present to suggest DVT. Ambulation is normal on examination. Examination fails to demonstrate an acute neurologic abnormality, and the patient denies back pain symptoms, urinary retention, or numbness over the groin region to suggest acute spinal cord compression syndrome. Radiographs of the back/CT Brain do not appear indicated or of benefit. Laboratory studies do not appear indicated based on the patient's examination. Patient appears stable for discharge with instructions to follow-up with her PCP for possible EMG studies if symptoms fail to improve. Patient appears stable for discharge at this time. Disposition Disposition: Discharge Clinical Impression: Paresthesia Disposition: Home, Self-Care Condition: (2) Stable Instructions: Paresthesia (ED) Additional Instructions: Return to ED if your symptoms worsen or if you have any concerns. Follow-up with your family doctor in 3-5 days as directed. Forms: Patient Portal Access Time of Disposition: 21:13 Quality - Quality Measures Quality Measures: N/A - Blood Pressure Screening Does Patient Have Any of the Following: No Blood Pressure Classification: Pre-Hypertensive BP Reading Systolic Measurement: 113 Diastolic Measurement: 84 Screening for High Blood Pressure: < Pre-Hypertensive BP, F/U Documented > [ G8950] Pre-Hypertensive Follow-up Interventions: Referral to alternative/primary care provider.
== END 2017-09-01 21:27 | disposition home or self-care (01) ==
LOC: ER 20:48
DX: R20.2 Paresthesia of skin (principal); F17.210 Nicotine dependence, cigarettes, uncomplicated
CPT/HCPCS: 99283

== ENCOUNTER 2018-01-30 20:02 | Emergency (ER) | payer MEDICAID ==
[2018-01-30 20:54] LABS: URINE APPEARANCE CLEAR; URINE BILIRUBIN NEGATIVE (NEGATIVE); URINE BLOOD TRACE-I (NEGATIVE); URINE COLOR YELLOW; URINE GLUCOSE (UA) NEGATIVE (NEGATIVE); URINE KETONE NEGATIVE (NEGATIVE); URINE LEUKOCYTE ESTERASE NEGATIVE (NEGATIVE); URINE NITRITE NEGATIVE (NEGATIVE); URINE PROTEIN NEGATIVE (NEGATIVE); URINE UROBILINOGEN 0.2 E.U./dL (0.20 - 1.00)
[2018-01-30] MEDS ORDERED: KETOROLAC 30 MG/ML VIAL IVP ONE (20:57)
[2018-01-30] MEDS ORDERED: 0.9 % SODIUM CHLORIDE 1,000 ML BAG IV ONE (20:57)
[2018-01-30 21:00] LABS: URINE EPITHELIAL CELLS 0 - 2 (FEW); URINE RBC 0 - 2 (NONE SEEN); URINE WBC NONE SEEN (0-2/hpf)
[2018-01-30 21:49] LABS: BASO % 0.3 % (0-6); EOS % 2.9 % (0-6); GRAN % 55.2 % (47-80); HEMATOCRIT 44.6 % (35.0-47.0); HEMOGLOBIN 14.7 gm/dl (11.6-16.0); LYMPH % 33.9 % (16-45); MEAN CELL VOLUME 92.7 fl (81-97); MEAN CORPUSCULAR HEMOGLOBIN 30.6 pg (27-33); MEAN PLATELET VOLUME 10.7 fl (7.4-10.4); MONO % 7.7 % (0-9); PLATELET COUNT 315 K/uL (130-400); RED BLOOD COUNT 4.81 M/uL (3.80-5.40); RED CELL DISTRIBUTION WIDTH 12.7 % (11.5-14.5); WHITE BLOOD COUNT W/O DIFF 12.8 K/uL (4.2-12.2)
[2018-01-30 21:59] LABS: BILIRUBIN,TOTAL < 0.20 mg/dL (0.2-1.0); BLOOD UREA NITROGEN 19 mg/dL (6-20); CREATININE 0.7 mg/dL (0.5-0.9); EST GLOMERULAR FILTRATION RATE > 60 mL/min
--- NOTE | 2018-01-30 21:59 | Emergency Department Record ---
History of Present Illness - General Chief complaint: Flank Pain Stated complaint: RT FLANK PAIN, Time Seen by Provider: 01/30/18 20:52 Source: Patient Mode of Arrival: Ambulatory Limitations: No limitations - History of Present Illness Initial comments: pt has been having r flank pain since yesterday am. it is constant. no other symptoms. MD Complaint: Other Onset/Timin -: Days(s) Radiation: R flank Severity: Moderate Severity scale (1-10): 6 Quality: Sharp, Stabbing Consistency: Constant Improves with: Other Worsens with: None Patient : No Associated Symptoms: Denies other symptoms - Related Data Previous Rx's Medication Instructions Recorded Hydrocodone/Acetaminophen [Bronson 1 each PO Q6HR #10 tablet 01/30/18 5-325 Tablet] Allergies Allergy/AdvReac Type Severity Reaction Status Date / Time No Known Drug Allergies Allergy Verified 01/30/18 20:10 Travel Screening - Travel/Exposure Within Last 30 Days Have you traveled within the last 30 days?: No - Travel/Exposure Within Last Year Have you traveled outside the [place] in the last year?: No - Additonal Travel Details Have you been exposed to anyone with a communicable illness?: No - Travel Symptoms Symptom Screening: None Review of Systems Reviewed: No additional complaints except as noted below Constitutional: Reports: As per HPI. Denies: Chills, Fever, Malaise, Night sweats, Weakness, Weight change Eyes: Reports: As per HPI. Denies: Eye discharge, Eye pain, Photophobia, Vision change ENT: Reports: As per HPI. Denies: Congestion, Dental pain, Ear pain, Epistaxis , Hearing loss, Throat pain Respiratory: Reports: As per HPI. Denies: Cough, Dyspnea, Hemoptysis, Stridor, Wheezes Cardiovascular: Reports: As per HPI. Denies: Arrhythmia, Chest pain, Dyspnea on exertion, Edema, Murmurs, Orthopnea, Palpitations, Paroxysmal nocturnal dyspnea, Rheumatic Fever, Syncope Endocrine: Reports: As per HPI. Denies: Fatigue, Heat or cold intolerance, Polydipsia, Polyuria Gastrointestinal: Reports: As per HPI. Denies: Abdominal pain, Constipation, Diarrhea, Hematemesis, Hematochezia, Melena, Nausea, Vomiting Genitourinary: Reports: As per HPI. Denies: Abnormal menses, Discharge, Dyspareunia, Dysuria, Frequency, Hematuria, Incontinence, Retention, Urgency Musculoskeletal: Reports: As per HPI. Denies: Arthralgia, Back pain, Gout, Joint swelling, Myalgia, Neck pain Skin: Reports: As per HPI. Denies: Bruising, Change in color, Change in hair/ nails, Lesions, Pruritus, Rash Neurological: Reports: As per HPI. Denies: Abnormal gait, Confusion, Headache, Numbness, Paresthesias, Seizure, Tingling, Tremors, Vertigo, Weakness Psychiatric: Reports: As per HPI. Denies: Anxiety, Auditory hallucinations, Depression, Homicidal thoughts, Suicidal thoughts, Visual hallucinations Hematological/Lymphatic: Reports: As per HPI. Denies: Anemia, Blood Clots, Easy bleeding, Easy bruising, Swollen glands Past Medical History - SOCIAL HISTORY Smoking Status: Light tobacco smoker (<10/day) Alcohol Use: None Drug Use: None - RESPIRATORY Hx Respiratory Disorders: Yes Hx Asthma: Yes - CARDIOVASCULAR Hx Cardio Disorders: Yes Comment:: High cholesterol - NEURO Hx Neuro Disorders: Yes Hx Headaches: Yes - GI Hx GI Disorders: Yes Hx Reflux: Yes - Hx Genitourinary Disorders: No - ENDOCRINE Hx Endocrine Disorders: No - MUSCULOSKELETAL Hx Musculoskeletal Disorders: No - PSYCH Hx Psych Problems: Yes Hx Anxiety: Yes Hx Depression: Yes - HEMATOLOGY/ONCOLOGY Hx Hematology/Oncology Disorders: No Family Medical History Any Significant Family History?: No Hx Cancer: Grandparents *Cancer Comment: Uncle-colon Hx Stroke: Mother Physical Exam - General General Appearance: Alert, Oriented x3, Cooperative, Mild distress - Head Head exam: Normal inspection - Eye Eye exam: Normal appearance, PERRL, EOMI Pupils: Normal accommodation - ENT ENT exam: Normal exam, Mucous membranes moist, Normal external ear exam, Normal orophraynx Ear exam: Normal external inspection. negative: External canal tenderness Nasal Exam: Normal inspection. negative: Discharge, Sinus tenderness Mouth exam: Normal external inspection, Tongue normal Teeth exam: Normal inspection. negative: Dental caries Throat exam: Normal inspection. negative: Tonsillar erythema, Tonsillar exudate - Neck Neck exam: Normal inspection, Full ROM. negative: Tenderness - Respiratory Respiratory exam: Normal lung sounds bilaterally. negative: Respiratory distress - Cardiovascular Cardiovascular Exam: Regular rate, Normal rhythm, Normal heart sounds - GI/Abdominal GI/Abdominal exam: Soft, Normal bowel sounds, Tenderness (ruq) - Rectal Rectal exam: Deferred - exam: Deferred - Extremities Extremities exam: Normal inspection, Full ROM, Normal capillary refill. negative: Tenderness - Back Back exam: Reports: Normal inspection, CVA tenderness (R), Full ROM. Denies: Muscle spasm, Rash noted, Tenderness - Neurological Neurological exam: Alert, CN II-XII intact, Normal gait, Oriented X3 - Psychiatric Psychiatric exam: Normal affect, Normal mood - Skin Skin exam: Dry, Intact, Normal color, Warm Course Vital Signs 01/30/18 01/30/18 20:14 21:30 Temperature 97.8 F Pulse Rate [ 78 56 L Pulse Ox Probe] Respiratory 18 16 Rate Blood Pressure 117/58 [Left Arm] Blood Pressure 95/50 [Right Arm] Pulse Ox 97 97 - Reevaluation(s) Reevaluation #1: 01/30/18 22:51 pt feels much better Medical Decision Making - Lab Data Result diagrams: 01/30/18 21:28 01/30/18 21:28 Lab Results 01/30/18 01/30/18 Range/Units 21:28 Unknown WBC 12.8 H (4.2-12.2) K/uL RBC 4.81 (3.80-5.40) M/uL Hgb 14.7 (11.6-16.0) gm/dl Hct 44.6 (35.0-47.0) % MCV 92.7 (81-97) fl MCH 30.6 (27-33) pg MCHC 33.0 (32-36) g/dl RDW 12.7 (11.5-14.5) % Plt Count 315 (130-400) K/uL MPV 10.7 H (7.4-10.4) fl Gran % 55.2 (47-80) % Lymphocytes % 33.9 (16-45) % Monocytes % 7.7 (0-9) % Eosinophils % 2.9 (0-6) % Basophils % 0.3 (0-6) % Urine Color Yellow Urine Appearance Clear Urine pH 6.0 (5.0-8.0) Ur Specific [place] 1.025 (1.002-1.030) Urine Protein Negative (NEGATIVE) Urine Glucose (UA) Negative (NEGATIVE) Urine Ketones Negative (NEGATIVE) Urine Blood Trace-i (NEGATIVE) Urine Nitrite Negative (NEGATIVE) Urine Bilirubin Negative (NEGATIVE) Urine Urobilinogen 0.2 (0.20 - 1.00) E.U./dL Ur Leukocyte Esterase Negative (NEGATIVE) Urine RBC 0 - 2 (NONE SEEN) Urine WBC None seen (0-2/hpf) Ur Epithelial Cells 0 - 2 (FEW) Disposition Disposition: Discharge Clinical Impression: Renal lithiasis Disposition: Home, Self-Care Condition: (1) Good Instructions: Kidney Stones (ED), How to Strain Your Urine (ED) Additional Instructions: follow up with urologist. return sooner if worse. push fluids Prescriptions: Hydrocodone/Acetaminophen [Bronson 5-325 Tablet] 1 each PO Q6HR #10 tablet Forms: Patient Portal Access Quality - Quality Measures Quality Measures: N/A - Blunt Head Trauma - Adult ICD10 Codes Entered: Yes - Blood Pressure Screening Does Patient Have Any of the Following: No Blood Pressure Classification: Normal BP Reading Systolic Measurement: 100 Diastolic Measurement: 40 Screening for High Blood Pressure: < Normal BP, F/U Not Required > [G8783]
[2018-01-30 22:00] LABS: TOTAL PROTEIN 6.4 g/dL (6.6-8.7)
[2018-01-30 22:02] LABS: GLUCOSE,RANDOM 87 mg/dL (74-109)
[2018-01-30 22:04] LABS: ALB/GLOB RATIO 1.8 (1.1-1.8); ALBUMIN 4.1 g/dL (4.0-5.0); ALT/SGPT 15 U/L (<33); AST/SGOT 14 U/L (10.0-35.0)
[2018-01-30 22:05] LABS: ALKALINE PHOSPHATASE 73 U/L (35-104)
[2018-01-30] MEDS ORDERED: HYDROCODONE/APAP 5/325MG TABLET PO ONE (22:53)
== END 2018-01-30 23:12 | disposition home or self-care (01) ==
LOC: ER 20:02
DX: N20.0 Calculus of kidney (principal); F17.210 Nicotine dependence, cigarettes, uncomplicated
CPT/HCPCS: 99284 ×2; 96374; 96361; 85025; 80053; 81001; 74176; J1885; J7030

== ENCOUNTER 2018-08-26 14:41 | Emergency (ER) | payer MEDICAID ==
[2018-08-26] MEDS ORDERED: DEXAMETHASONE SOD PHOSPHATE 10MG/ML VIAL PO ONE (15:40)
[2018-08-26] MEDS ORDERED: AZITHROMYCIN 500 MG TABLET PO ONE (15:40)
--- NOTE | 2018-08-26 15:48 | Emergency Department Record ---
History of Present Illness - General Stated complaint: SORE THROAT, COUGH Time Seen by Provider: 08/26/18 15:35 Source: Patient Mode of Arrival: Ambulatory Limitations: No limitations - History of Present Illness Initial comments: 48 yo female presents with two days of sore throat, congestion, swollen glands. She has been exposed to others with similar symptoms. It hurts to swallow. No voice changes. No ear pain. No nausea, vomiting, or diarrhea. No rash. No fever. She is a smoker. Her "smoker's cough" is unchanged. It does hurt to cough in the chest, back and shoulders. MD complaint: Sore throat -: Days(s) (2) Location: Throat Severity: Moderate Quality: Aching Consistency: Constant Improves with: None Worsens with: Swallowing Associated Symptoms: Cough (congestion) - Related Data Previous Rx's Medication Instructions Recorded Azithromycin [Zithromax] 250 mg PO DAILY #4 tab 08/26/18 Allergies Allergy/AdvReac Type Severity Reaction Status Date / Time No Known Drug Allergies Allergy Unverified 05/04/18 08:21 Review of Systems Constitutional: Denies: Chills, Fever, Malaise, Weakness Eyes: Denies: Eye discharge, Eye pain, Photophobia, Vision change ENT: Reports: Congestion, Throat pain. Denies: Epistaxis Respiratory: Reports: Cough. Denies: Dyspnea, Hemoptysis, Wheezes Cardiovascular: Reports: Chest pain (with coughing) Endocrine: Denies: Fatigue Gastrointestinal: Denies: Abdominal pain, Diarrhea, Nausea, Vomiting Musculoskeletal: Denies: Arthralgia, Back pain, Gout, Joint swelling Skin: Denies: Bruising, Change in color, Rash Neurological: Denies: Headache Psychiatric: Denies: Anxiety Hematological/Lymphatic: Reports: Swollen glands. Denies: Easy bleeding, Easy bruising Past Medical History - SOCIAL HISTORY Smoking Status: Light tobacco smoker (<10/day) Drug Use: None - RESPIRATORY Hx Respiratory Disorders: Yes Hx Asthma: Yes - CARDIOVASCULAR Hx Cardio Disorders: Yes Comment:: High cholesterol - NEURO Hx Neuro Disorders: Yes Hx Headaches: Yes - GI Hx GI Disorders: Yes Hx Reflux: Yes - Hx Genitourinary Disorders: No - ENDOCRINE Hx Endocrine Disorders: No - MUSCULOSKELETAL Hx Musculoskeletal Disorders: No - PSYCH Hx Psych Problems: Yes Hx Anxiety: Yes Hx Depression: Yes - HEMATOLOGY/ONCOLOGY Hx Hematology/Oncology Disorders: No Family Medical History Hx Cancer: Grandparents *Cancer Comment: Uncle-colon Hx Stroke: Mother Physical Exam - General General Appearance: Alert, Oriented x3, Cooperative, No acute distress Limitations: No limitations - Head Head exam: Atraumatic, Normal inspection - Eye Eye exam: Normal appearance, PERRL. negative: Conjunctival injection, Scleral icterus - ENT ENT exam: Mucous membranes moist, TM's normal bilaterally. negative: Normal exam, Mucous membranes dry, Normal orophraynx Ear exam: Normal external inspection Nasal Exam: Discharge (mild clear) Mouth exam: Tongue normal. negative: Drooling, Muffled voice, Tongue elevation , Trismus Teeth exam: Normal inspection. negative: Dental caries Throat exam: Tonsillar erythema, Tonsillomegaly. negative: Tonsillar exudate, R peritonsillar mass, L peritonsillar mass - Neck Neck exam: Normal inspection, Full ROM, Lymphadenopathy (mild symmetric lymphadenopathy small and mobile but tender), Tenderness. negative: Meningismus - Respiratory Respiratory exam: Normal lung sounds bilaterally. negative: Accessory muscle use, Chest wall tenderness, Decreased breath sounds, Respiratory distress, Rhonchi, Stridor, Wheezes - Cardiovascular Cardiovascular Exam: Regular rate, Normal rhythm, Normal heart sounds - GI/Abdominal GI/Abdominal exam: Soft, Normal bowel sounds. negative: Tenderness - Rectal Rectal exam: Deferred - exam: Deferred - Extremities Extremities exam: Normal inspection. negative: Calf tenderness, Pedal edema, Tenderness - Back Back exam: Denies: CVA tenderness (R), CVA tenderness (L) - Neurological Neurological exam: Alert, Oriented X3 - Psychiatric Psychiatric exam: Normal affect, Normal mood - Skin Skin exam: Dry, Intact, Normal color, Warm Course Vital Signs 08/26/18 15:38 Temperature 98.3 F Pulse Rate [ 80 Left] Respiratory 20 Rate Blood Pressure 127/84 [Left Arm] Pulse Ox 96 Disposition Disposition: Discharge Clinical Impression: Tonsillitis Disposition: Home, Self-Care Condition: (1) Good Instructions: Tonsillitis (ED) Additional Instructions: Call your doctor for the next available follow up appointment Return to the ER for a recheck if worse, any new concerns or questions Take the prescriptions provided as directed Review this ER visit and the tests performed with your family doctor Prescriptions: Azithromycin [Zithromax] 250 mg PO DAILY #4 tab Forms: Patient Portal Access Time of Disposition: 15:45 Quality - Quality Measures Quality Measures: N/A - Blunt Head Trauma - Adult ICD10 Codes Entered: Yes - Blood Pressure Screening Does Patient Have Any of the Following: No Blood Pressure Classification: Pre-Hypertensive BP Reading Systolic Measurement: 125 Diastolic Measurement: 82 Screening for High Blood Pressure: < Pre-Hypertensive BP, F/U Documented > [ G8950] Pre-Hypertensive Follow-up Interventions: Referral to alternative/primary care provider.
== END 2018-08-26 16:07 | disposition home or self-care (01) ==
LOC: ER 14:41
DX: J03.90 Acute tonsillitis, unspecified (principal); F17.210 Nicotine dependence, cigarettes, uncomplicated
CPT/HCPCS: 99282

== ENCOUNTER 2018-08-29 20:14 | Emergency (ER) | payer MEDICAID ==
--- NOTE | 2018-08-29 20:27 | Emergency Department Record ---
History of Present Illness - General Chief Complaint: Headache Migraine Stated Complaint: LT SIDE FACE AND HEAD PAIN Time Seen by Provider: 08/29/18 20:16 Source: Patient Mode of Arrival: Ambulatory Limitations: No limitations - History of Present Illness Initial Comments: 48 yo female presents to ED for evaluation of left ear pain extending up the head and into her neck. Patient reports that she was seen 3 days ago and diagnosed with tonsillitis, has been taking Zithromax however her symptoms are worsening. Patient reports decreased hearing and ear pain symptoms, denies discharge from the ear. Patient denies fevers, chills, or recent illness. MD Complaint: Other Onset/Timin -: Days(s) Onset Description: Gradual Location: Left, Temporal Severity: Moderate Quality: Aching Consistency: Constant Improves With: Nothing Worsens With: None - Related Data Previous Rx's Medication Instructions Recorded Azithromycin [Zithromax] 250 mg PO DAILY #4 tab 08/26/18 Neomycin/Polymyxin B Sulf/Hc 2 drop AFFEAR QID #10 ml 08/29/18 [Cortisporin Otic] Allergies Allergy/AdvReac Type Severity Reaction Status Date / Time No Known Drug Allergies Allergy Verified 08/29/18 20:18 Review of Systems Constitutional: Denies: Chills, Fever, Malaise, Night sweats Eyes: Denies: Eye discharge, Eye pain ENT: Reports: Congestion, Ear pain, Throat pain. Denies: Epistaxis Respiratory: Denies: Cough, Dyspnea Cardiovascular: Denies: Chest pain, Dyspnea on exertion Endocrine: Denies: Fatigue, Heat or cold intolerance Gastrointestinal: Denies: Abdominal pain, Nausea, Vomiting Genitourinary: Denies: Incontinence, Retention Musculoskeletal: Denies: Arthralgia, Back pain, Gout, Joint swelling Skin: Denies: Bruising, Change in color Neurological: Reports: Headache. Denies: Abnormal gait, Confusion, Seizure Psychiatric: Denies: Anxiety Hematological/Lymphatic: Denies: Anemia, Blood Clots Past Medical History - SOCIAL HISTORY Smoking Status: Light tobacco smoker (<10/day) Drug Use: None - RESPIRATORY Hx Respiratory Disorders: Yes Hx Asthma: Yes - CARDIOVASCULAR Hx Cardio Disorders: Yes Comment:: High cholesterol - NEURO Hx Neuro Disorders: Yes Hx Headaches: Yes - GI Hx GI Disorders: Yes Hx Reflux: Yes - Hx Genitourinary Disorders: No - ENDOCRINE Hx Endocrine Disorders: No - MUSCULOSKELETAL Hx Musculoskeletal Disorders: No - PSYCH Hx Psych Problems: Yes Hx Anxiety: Yes Hx Depression: Yes - HEMATOLOGY/ONCOLOGY Hx Hematology/Oncology Disorders: No Family Medical History Hx Cancer: Grandparents *Cancer Comment: Uncle-colon Hx Stroke: Mother Physical Exam - General General Appearance: Alert, Oriented x3, Cooperative, Mild distress Limitations: No limitations - Head Head exam: Atraumatic, Normocephalic, Normal inspection Head exam detail: negative: Abrasion, Contusion, Sanchez's sign, General tenderness, Hematoma, Laceration - Eye Eye exam: Normal appearance. negative: Conjunctival injection, Periorbital swelling, Periorbital tenderness, Scleral icterus - ENT ENT exam: Normal orophraynx Ear exam: External canal tenderness (Erythema/swelling to the EAC left compared with the right, TMs appear normal.). negative: Auricular hematoma, Auricular trauma Nasal Exam: negative: Active bleeding, Discharge, Dried blood, Foreign body Mouth exam: negative: Drooling, Laceration, Muffled voice, Tongue elevation - Neck Neck exam: Normal inspection. negative: Meningismus, Tenderness - Respiratory Respiratory exam: Normal lung sounds bilaterally. negative: Rales, Respiratory distress, Rhonchi, Stridor - Cardiovascular Cardiovascular Exam: Regular rate, Normal rhythm, Normal heart sounds - GI/Abdominal GI/Abdominal exam: Soft. negative: Rebound, Rigid, Tenderness - Rectal Rectal exam: Deferred - exam: Deferred - Extremities Extremities exam: Normal inspection. negative: Pedal edema, Tenderness - Back Back exam: Denies: CVA tenderness (R), CVA tenderness (L) - Neurological Neurological exam: Alert, Normal gait, Oriented X3 - Psychiatric Psychiatric exam: Normal affect, Normal mood - Skin Skin exam: Normal color. negative: Abrasion Type of lesion: negative: abrasion Course Vital Signs 08/29/18 20:19 Temperature 97.8 F Pulse Rate [ 76 Pulse Ox Probe] Respiratory 20 Rate Blood Pressure 137/84 [Left Arm] Pulse Ox 100 - Reevaluation(s) Reevaluation #1: 08/29/18 20:30 History and examination appear c/w otitis externa, will treat with Cortisporin drops as directed. Patient was updated on her findings and is in agreement with the plan of care as discussed. Disposition Disposition: Discharge Clinical Impression: Otitis externa Qualifiers: Otitis externa type: unspecified type Chronicity: acute Laterality: left Qualified Code(s): H60.502 - Unspecified acute noninfective otitis externa, left ear Disposition: Home, Self-Care Condition: (2) Stable Instructions: Otitis Externa (ED) Additional Instructions: Return to ED if your symptoms worsen or if you have any concerns. Polymyxin ear drops (3 drops/4 times daily) as directed. Follow-up with your family doctor in 3-5 days as directed. Prescriptions: Neomycin/Polymyxin B Sulf/Hc [Cortisporin Otic] 2 drop AFFEAR QID #10 ml Forms: Patient Portal Access Time of Disposition: 20:25 Quality - Quality Measures Quality Measures: N/A - Blood Pressure Screening Does Patient Have Any of the Following: No Blood Pressure Classification: Pre-Hypertensive BP Reading Systolic Measurement: 137 Diastolic Measurement: 84 Screening for High Blood Pressure: < Pre-Hypertensive BP, F/U Documented > [ G8950] Pre-Hypertensive Follow-up Interventions: Referral to alternative/primary care provider.
== END 2018-08-29 20:34 | disposition home or self-care (01) ==
LOC: ER 20:14
DX: H60.502 Unspecified acute noninfective otitis externa, left ear (principal); F17.210 Nicotine dependence, cigarettes, uncomplicated
CPT/HCPCS: 99282

== ENCOUNTER 2018-09-08 11:06 | Emergency (ER) | payer SELFPAY ==
--- NOTE | 2018-09-08 12:45 | Emergency Department Record ---
History of Present Illness - General Chief complaint: ENT Stated complaint: LEFT FACIAL SWELLING Time Seen by Provider: 09/08/18 12:42 Source: Patient Mode of Arrival: Ambulatory Limitations: No limitations - History of Present Illness Initial comments: The patient is here due to a [address] h[address] of a ST and L ear pain. She has been here twice in the last 2 weeks and first was placed on Zithromax and on the 2nd visit received ear drops and steroids. She did call her doctor today due to not feeling all better and was told to go to the ER. The patient denies any fever, cough, voice changes, ABDI, swelling, or SOB. MD complaint: Other Onset/Timin -: Week(s) Location: L ear, Throat Severity: Mild Severity scale (1-10): 4 Quality: Aching Consistency: Constant Improves with: None Worsens with: None Associated Symptoms: Pain with swallowing, Sore throat - Related Data Previous Rx's Medication Instructions Recorded Neomycin/Polymyxin B Sulf/Hc 2 drop AFFEAR QID #10 ml 08/29/18 [Cortisporin Otic] Prednisone [Prednisone 20Mg] 40 mg PO DAILY #10 tab 09/08/18 Allergies Allergy/AdvReac Type Severity Reaction Status Date / Time No Known Drug Allergies Allergy Verified 09/08/18 12:38 Travel Screening - Travel/Exposure Within Last 30 Days Have you traveled within the last 30 days?: No Review of Systems Constitutional: Denies: Chills, Fever, Malaise Eyes: Denies: Eye discharge ENT: Denies: Congestion Respiratory: Denies: Cough, Dyspnea Cardiovascular: Denies: Arrhythmia, Chest pain Past Medical History - SOCIAL HISTORY Smoking Status: Light tobacco smoker (<10/day) Alcohol Use: None Drug Use: None - RESPIRATORY Hx Respiratory Disorders: Yes Hx Asthma: Yes - CARDIOVASCULAR Hx Cardio Disorders: Yes Comment:: High cholesterol - NEURO Hx Neuro Disorders: Yes Hx Headaches: Yes - GI Hx GI Disorders: Yes Hx Reflux: Yes - Hx Genitourinary Disorders: No - ENDOCRINE Hx Endocrine Disorders: No - MUSCULOSKELETAL Hx Musculoskeletal Disorders: No - PSYCH Hx Psych Problems: Yes Hx Anxiety: Yes Hx Depression: Yes - HEMATOLOGY/ONCOLOGY Hx Hematology/Oncology Disorders: No Family Medical History Any Significant Family History?: Yes Hx Cancer: Grandparents *Cancer Comment: Uncle-colon Hx Stroke: Mother Physical Exam - General General Appearance: Alert, Oriented x3, Cooperative, No acute distress - Head Head exam: Atraumatic, Normocephalic, Normal inspection - Eye Eye exam: Normal appearance, PERRL, EOMI - ENT ENT exam: Normal exam, Normal orophraynx. negative: TM's normal bilaterally (The R TM is normal and the L TM has mild inflammation to the superior canal and TM but no obvious effusion and no loss of landmarks.) Ear exam: Normal external inspection. negative: External canal tenderness Teeth exam: Normal inspection. negative: Dental caries Throat exam: Normal inspection. negative: Tonsillar erythema, Tonsillomegaly, Tonsillar exudate, R peritonsillar mass, L peritonsillar mass - Neck Neck exam: Normal inspection (There is no neck swelling or edema.), Full ROM, Tenderness (The L submandibular gland is mildly tender but clearly not swollen. ). negative: Lymphadenopathy, Meningismus, Thyromegaly - Respiratory Respiratory exam: Normal lung sounds bilaterally. negative: Chest wall tende rness, Rales, Respiratory distress - Cardiovascular Cardiovascular Exam: Regular rate, Normal rhythm, Normal heart sounds. negative: Diastolic murmur, Systolic murmur - GI/Abdominal GI/Abdominal exam: Soft, Normal bowel sounds. negative: Tenderness - Extremities Extremities exam: Normal inspection, Full ROM, Normal capillary refill. negative: Tenderness - Neurological Neurological exam: Alert. negative: Motor sensory deficit Course Vital Signs 09/08/18 12:32 Temperature 98.0 F Pulse Rate 62 Respiratory 20 Rate Blood Pressure 117/67 Pulse Ox 98 - Reevaluation(s) Reevaluation #1: The patient is doing very well at this time. The patient is presently texting on the phone and is resting comfortably. I did explain to her that her lab work is WNL's and she appears very comfortable presently. The patient did explain that she had no ST yesterday and is not sure why it came back today. She is to see her PCP next week for recheck. 09/08/18 14:14 Medical Decision Making - Data Complexity MDM Data: Labs Ordered and/or Reviewed - Lab Data Result diagrams: 09/08/18 13:30 09/08/18 13:30 Disposition Disposition: Discharge Clinical Impression: Pharyngitis Qualifiers: Pharyngitis/tonsillitis etiology: unspecified etiology Qualified Code(s): J02.9 - Acute pharyngitis, unspecified Disposition: Home, Self-Care Condition: (2) Stable Instructions: Pharyngitis (ED) Additional Instructions: Please take the Prednisone as directed and please see your family doctor next week for recheck. Return to the ER for any worsening symptoms. Prescriptions: Prednisone [Prednisone 20Mg] 40 mg PO DAILY #10 tab Forms: Patient Portal Access Time of Disposition: 14:20 Quality - Quality Measures Quality Measures: Blunt Head Trauma (>2yr) - Blunt Head Trauma - Adult Quality Measure: Measure #415: Utilization of CT for Minor Blunt Head Trauma ICD10 Codes Entered: Yes View Details: Yes Was CT ordered: No [place] Score: Please complete Rolando Coma Scale above Utilization of CT for Minor Blunt Head Trauma: Not Eligible For Measure Additional Inclusion Criteria: More than 24hrs (OR) GCS not 15 (OR) CT not ordered. Not Eligible Reason: CT Not Ordered - Blood Pressure Screening View Details: Yes Does Patient Have Any of the Following: No Blood Pressure Classification: Normal BP Reading Systolic Measurement: 117 Diastolic Measurement: 67 Screening for High Blood Pressure: < Normal BP, F/U Not Required > [G8783]
[2018-09-08 13:47] LABS: BASO % 0.5 % (0-6); GRAN % 59.4 % (47-80); HEMATOCRIT 43.4 % (35.0-47.0); HEMOGLOBIN 14.6 gm/dl (11.6-16.0); LYMPH % 31.7 % (16-45); MEAN CELL VOLUME 90.8 fl (81-97); MEAN CORPUSCULAR HEMOGLOBIN 30.5 pg (27-33); MEAN CORPUSCULAR HGB CONC 33.6 g/dl (32-36); MEAN PLATELET VOLUME 10.5 fl (7.4-10.4); MONO % 6.4 % (0-9); PLATELET COUNT 289 K/uL (130-400); RED BLOOD COUNT 4.78 M/uL (3.80-5.40); RED CELL DISTRIBUTION WIDTH 12.7 % (11.5-14.5); WHITE BLOOD COUNT W/O DIFF 10.8 K/uL (4.2-12.2)
[2018-09-08 13:59] LABS: BLOOD UREA NITROGEN 12 mg/dL (6-20); CREATININE 0.6 mg/dL (0.5-0.9); EST GLOMERULAR FILTRATION RATE > 60 mL/min
[2018-09-08 14:00] LABS: TOTAL PROTEIN 6.6 g/dL (6.6-8.7)
[2018-09-08 14:02] LABS: GLUCOSE,RANDOM 90 mg/dL (74-109)
[2018-09-08 14:04] LABS: ALT/SGPT 16 U/L (<33)
[2018-09-08 14:05] LABS: ALB/GLOB RATIO 1.6 (1.1-1.8); ALBUMIN 4.1 g/dL (4.0-5.0); ALKALINE PHOSPHATASE 73 U/L (35-104); AST/SGOT 14 U/L (10.0-35.0); C-REACTIVE PROTEIN 0.63 mg/dL (<0.5)
== END 2018-09-08 14:32 | disposition home or self-care (01) ==
LOC: ER 11:06
DX: J02.9 Acute pharyngitis, unspecified (principal); H92.02 Otalgia, left ear; F17.210 Nicotine dependence, cigarettes, uncomplicated
CPT/HCPCS: 80053; 85025; 86140; 86308; 99283

== ENCOUNTER 2019-04-01 19:53 | Emergency (ER) | payer SELFPAY ==
[2019-04-01] MEDS ORDERED: CEPHALEXIN 500 MG CAPSULE PO STA ×2 (20:02→20:05)
[2019-04-01] MEDS ORDERED: ERYTHROMYCIN OPTH OINT 3.5GM OPTH ONE (20:02)
--- NOTE | 2019-04-01 20:03 | Emergency Department Record ---
History of Present Illness - General Stated complaint: RED EYE Time Seen by Provider: 04/01/19 19:57 Source: Patient Mode of Arrival: Ambulatory Limitations: No limitations - History of Present Illness Initial comments: 49 yo female presents with one day of left upper lid redness and swelling. No trauma. No vision changes. She does not wear contacts. The upper lid began to mildly ache then the swelling and redness developed. No cough, sore throat, or ear pain. MD chief complaint: Eye redness -: Days(s) (1) Onset Description: Gradual Location: Left eye Place: Home If Injury: None Eye Symptoms: Pain Severity: Mild If Pain, Quality: Aching Consistency: Constant Context: Other Associated Symptoms: None Treatments Prior to Arrival: None - Related Data Previous Rx's Medication Instructions Recorded Neomycin/Polymyxin B Sulf/Hc 2 drop AFFEAR QID #10 ml 08/29/18 [Cortisporin Otic] Prednisone [Prednisone 20Mg] 40 mg PO DAILY #10 tab 09/08/18 Cephalexin [Keflex] 500 mg PO QID #28 cap 04/01/19 Allergies Allergy/AdvReac Type Severity Reaction Status Date / Time No Known Drug Allergies Allergy Verified 09/08/18 12:38 Review of Systems Constitutional: Denies: Chills, Fever, Malaise, Weakness Eyes: Reports: Eye pain (Lid only). Denies: Eye discharge, Photophobia, Vision change, Other ENT: Denies: Congestion, Throat pain Respiratory: Denies: Cough Cardiovascular: Denies: Chest pain, Palpitations, Syncope Endocrine: Denies: Fatigue Gastrointestinal: Denies: Abdominal pain, Diarrhea, Nausea, Vomiting Genitourinary: Denies: Dysuria, Urgency Musculoskeletal: Denies: Arthralgia, Back pain, Myalgia Skin: Denies: Bruising, Change in color, Rash Neurological: Denies: Headache Psychiatric: Denies: Anxiety Hematological/Lymphatic: Denies: Easy bleeding, Easy bruising Past Medical History - SOCIAL HISTORY Smoking Status: Light tobacco smoker (<10/day) Drug Use: None - RESPIRATORY Hx Respiratory Disorders: Yes Hx Asthma: Yes - CARDIOVASCULAR Hx Cardio Disorders: Yes Comment:: High cholesterol - NEURO Hx Neuro Disorders: Yes Hx Headaches: Yes - GI Hx GI Disorders: Yes Hx Reflux: Yes - Hx Genitourinary Disorders: No - ENDOCRINE Hx Endocrine Disorders: No - MUSCULOSKELETAL Hx Musculoskeletal Disorders: No - PSYCH Hx Psych Problems: Yes Hx Anxiety: Yes Hx Depression: Yes - HEMATOLOGY/ONCOLOGY Hx Hematology/Oncology Disorders: No Family Medical History Hx Cancer: Grandparents *Cancer Comment: Uncle-colon Hx Stroke: Mother Physical Exam - General General Appearance: Alert, Oriented x3, Cooperative, No acute distress Limitations: No limitations - Head Head exam: Atraumatic Image of Face/Head: 1 - mild upper lid eythema and swelling, no fluctuance - Eye Eye exam: Conjunctival injection, Periorbital swelling (mild upper lid erythema and swelling, no visible abscess external or under the lid). negative: Normal appearance, Periorbital tenderness Pupils: Normal accommodation - ENT ENT exam: Normal exam Ear exam: Normal external inspection Nasal Exam: Normal inspection Mouth exam: Normal external inspection (minimal) Course - Reevaluation(s) Reevaluation #1: 04/01/19 20:04 The examination is consistent with possible blepharitis. No focal abscess found external lid or under the lid 04/01/19 20:08 The eye was stained and examined under magnification. No abnormal stain uptake Disposition Disposition: Discharge Clinical Impression: Blepharitis Qualifiers: Laterality: left Eyelid: upper Disposition: Home, Self-Care Condition: (1) Good Instructions: Blepharitis (ED) Additional Instructions: Apply warm pack every 4-6 hours Apply the erythromycin every 4 hours while wake Take the Keflex 4 times daily Return if worse, fever, vision changes or concerns that it is not healing Prescriptions: Cephalexin [Keflex] 500 mg PO QID #28 cap Time of Disposition: 20:07 Quality - Quality Measures Quality Measures: N/A - Blood Pressure Screening Does Patient Have Any of the Following: No Blood Pressure Classification: Normal BP Reading Systolic Measurement: 115 Diastolic Measurement: 74 Screening for High Blood Pressure: < Normal BP, F/U Not Required > [G8783]
== END 2019-04-01 20:27 | disposition home or self-care (01) ==
LOC: ER 19:53
DX: H01.004 Unspecified blepharitis left upper eyelid (principal)
CPT/HCPCS: 99283

== ENCOUNTER 2019-06-08 22:34 | Emergency (ER) | payer MEDICAID ==
[2019-06-08] MEDS ORDERED: ONDANSETRON 4 MG ODT TABLET SL ONE (23:13)
[2019-06-08 23:39] LABS: INFLUENZA A NEGATIVE (NEGATIVE); INFLUENZA B NEGATIVE (NEGATIVE)
--- NOTE | 2019-06-08 23:51 | Emergency Department Record ---
History of Present Illness - General Chief complaint: Vomiting Stated complaint: VOMITING,ABDI, HOT AND COLD Time Seen by Provider: 06/08/19 22:55 Source: Patient Mode of Arrival: Ambulatory Limitations: No limitations - History of Present Illness Initial comments: pt has had body aches, fevers, congestion, cough, she was exposed to the flu. she has had n/v x 3. MD complaint: Nausea, Vomiting -: Days(s) Description of Vomiting: Bilious Description of Diarrhea: Water Associated Abdominal Pain: No Severity: Mild Severity scale (1-10): 4 Consistency: Constant Improves with: None Worsens with: None Associated Symptoms: Cough, Fever/chills, Headaches, Myalgias, Nausea/vomiting - Related Data Home Medications Medication Instructions Recorded Confirmed Last Taken No Home Med [NO HOME MEDS] 06/08/19 06/08/19 Unknown Allergies Allergy/AdvReac Type Severity Reaction Status Date / Time No Known Drug Allergies Allergy Verified 09/08/18 12:38 Travel Screening - Travel/Exposure Within Last 30 Days Have you traveled within the last 30 days?: No - Travel Symptoms Symptom Screening: None Review of Systems Reviewed: No additional complaints except as noted below Constitutional: Reports: As per HPI, Fever. Denies: Chills, Malaise, Night sweats, Weakness, Weight change Eyes: Reports: As per HPI. Denies: Eye discharge, Eye pain, Photophobia, Vision change ENT: Reports: As per HPI, Congestion. Denies: Dental pain, Ear pain, Epistaxis, Hearing loss, Throat pain Respiratory: Reports: As per HPI, Cough. Denies: Dyspnea, Hemoptysis, Stridor, Wheezes Cardiovascular: Reports: As per HPI. Denies: Arrhythmia, Chest pain, Dyspnea on exertion, Edema, Murmurs, Orthopnea, Palpitations, Paroxysmal nocturnal dyspnea, Rheumatic Fever, Syncope Endocrine: Reports: As per HPI. Denies: Fatigue, Heat or cold intolerance, Polydipsia, Polyuria Gastrointestinal: Reports: As per HPI. Denies: Abdominal pain, Constipation, Diarrhea, Hematemesis, Hematochezia, Melena, Nausea, Vomiting Genitourinary: Reports: As per HPI. Denies: Abnormal menses, Discharge, Dyspareunia, Dysuria, Frequency, Hematuria, Incontinence, Retention, Urgency Musculoskeletal: Reports: As per HPI. Denies: Arthralgia, Back pain, Gout, Joint swelling, Myalgia, Neck pain Skin: Reports: As per HPI. Denies: Bruising, Change in color, Change in hair/nails, Lesions, Pruritus, Rash Neurological: Reports: As per HPI. Denies: Abnormal gait, Confusion, Headache, Numbness, Paresthesias, Seizure, Tingling, Tremors, Vertigo, Weakness Psychiatric: Reports: As per HPI. Denies: Anxiety, Auditory hallucinations, Depression, Homicidal thoughts, Suicidal thoughts, Visual hallucinations Hematological/Lymphatic: Reports: As per HPI. Denies: Anemia, Blood Clots, Easy bleeding, Easy bruising, Swollen glands Past Medical History - SOCIAL HISTORY Smoking Status: Light tobacco smoker (<10/day) Alcohol Use: Rare Drug Use: None - RESPIRATORY Hx Respiratory Disorders: Yes Hx Asthma: Yes - CARDIOVASCULAR Hx Cardio Disorders: Yes Comment:: High cholesterol - NEURO Hx Neuro Disorders: Yes Hx Headaches: Yes - GI Hx GI Disorders: Yes Hx Reflux: Yes - Hx Genitourinary Disorders: No - ENDOCRINE Hx Endocrine Disorders: No - MUSCULOSKELETAL Hx Musculoskeletal Disorders: No - PSYCH Hx Psych Problems: Yes Hx Anxiety: Yes Hx Depression: Yes - HEMATOLOGY/ONCOLOGY Hx Hematology/Oncology Disorders: No Family Medical History Any Significant Family History?: Yes Hx Cancer: Grandparents *Cancer Comment: Uncle-colon Hx Stroke: Mother Physical Exam - General General Appearance: Alert, Oriented x3, Cooperative, No acute distress - Head Head exam: Normal inspection - Eye Eye exam: Normal appearance, PERRL, EOMI Pupils: Normal accommodation - ENT ENT exam: Normal exam, Mucous membranes moist, Normal external ear exam, Normal orophraynx Ear exam: Normal external inspection. negative: External canal tenderness Nasal Exam: Normal inspection. negative: Discharge, Sinus tenderness Mouth exam: Normal external inspection, Tongue normal Teeth exam: Normal inspection. negative: Dental caries Throat exam: Normal inspection. negative: Tonsillar erythema, Tonsillar exudate - Neck Neck exam: Normal inspection, Full ROM. negative: Tenderness - Respiratory Respiratory exam: Normal lung sounds bilaterally. negative: Respiratory distress - Cardiovascular Cardiovascular Exam: Regular rate, Normal rhythm, Normal heart sounds - GI/Abdominal GI/Abdominal exam: Soft, Normal bowel sounds. negative: Tenderness - Rectal Rectal exam: Deferred - exam: Deferred - Extremities Extremities exam: Normal inspection, Full ROM, Normal capillary refill. negative: Tenderness - Back Back exam: Reports: Normal inspection, Full ROM. Denies: Muscle spasm, Rash noted, Tenderness - Neurological Neurological exam: Alert, CN II-XII intact, Normal gait, Oriented X3 - Psychiatric Psychiatric exam: Normal affect, Normal mood - Skin Skin exam: Dry, Intact, Normal color, Warm Course Vital Signs 06/08/19 22:40 Temperature 98.9 F Pulse Rate [ 76 Left] Respiratory 16 Rate Blood Pressure 133/68 [Left Arm] Pulse Ox 98 Medical Decision Making - Lab Data Lab Results 06/08/19 Range/Units 23:05 Influenza Type A Ag Negative (NEGATIVE) Influenza Type B Ag Negative (NEGATIVE) Disposition Disposition: Discharge Clinical Impression: Viral syndrome Nausea & vomiting Qualifiers: Vomiting type: unspecified Vomiting Intractability: non-intractable Qualified Code(s): R11.2 - Nausea with vomiting, unspecified Disposition: Home, Self-Care Condition: (1) Good Instructions: Acute Nausea and Vomiting (ED), Viral Syndrome (ED) Additional Instructions: follow up with family doctor. return sooner if worse. push fluids. rest. tylenol as needed Quality - Quality Measures Quality Measures: N/A - Blood Pressure Screening Does Patient Have Any of the Following: No Blood Pressure Classification: Pre-Hypertensive BP Reading Systolic Measurement: 133 Diastolic Measurement: 68 Screening for High Blood Pressure: < Pre-Hypertensive BP, F/U Documented > [G8950] Pre-Hypertensive Follow-up Interventions: Follow-up with rescreen every year.
== END 2019-06-09 00:09 | disposition home or self-care (01) ==
LOC: ER 22:34
DX: B34.9 Viral infection, unspecified (principal); R11.2 Nausea with vomiting, unspecified; R51 Headache; R05 Cough; F17.210 Nicotine dependence, cigarettes, uncomplicated
CPT/HCPCS: 87400; 99283

== ENCOUNTER 2019-06-27 08:32 | Emergency (ER) | payer MEDICAID ==
--- NOTE | 2019-06-27 09:03 | Emergency Department Record ---
History of Present Illness - General Chief Complaint: Fall Injury Stated Complaint: FALL ON 06/23 [place] ON ABD Time Seen by Provider: 06/27/19 08:48 Source: Patient Mode of Arrival: Ambulatory Limitations: No limitations - History of Present Illness Initial Comments: pt tripped over dog 4 days ago injuring r wrist and abdomen and lip. the wrist and lip are healing but the abdomen is having increased pain MD Complaint: Fall Onset/Timin -: Days(s) Fall From: Other When Fall Occurred: # Days TATT[facility] Fall Witnessed: No Place Fall Occurred: Home Loss of Consciousness: None Prolonged Down Time?: No Symptoms Prior to Fall: None Location: Abdomen Severity: Mild Severity scale (1-10): 4 Quality: Aching Context: Tripped/slipped Associated Symptoms: Denies - [place] Coma Scale Eye Response: (4) Open spontaneously Motor Response: (6) Obeys commands Verbal Response: (5) Oriented [place] Total: 15 - Related Data Allergies Allergy/AdvReac Type Severity Reaction Status Date / Time No Known Drug Allergies Allergy Verified 09/08/18 12:38 Travel/Exposure Screening - Travel/Exposure Within Last 30 Days Have you traveled within the last 30 days?: No - Additonal Travel/Exposure Details Have you been exposed to anyone with a communicable illness?: No - Travel Symptoms Symptom Screening: None Review of Systems Constitutional: Denies: Chills, Fever, Malaise, Night sweats, Weakness Eyes: Denies: Eye discharge, Eye pain, Photophobia ENT: Denies: Congestion, Dental pain, Ear pain, Epistaxis Respiratory: Denies: Cough, Dyspnea, Hemoptysis, Stridor, Wheezes Cardiovascular: Denies: Arrhythmia, Chest pain, Dyspnea on exertion, Orthopnea, Palpitations Endocrine: Denies: Fatigue, Heat or cold intolerance, Polydipsia, Polyuria Gastrointestinal: Reports: Abdominal pain. Denies: Constipation, Diarrhea, Hematemesis, Hematochezia, Melena, Nausea, Vomiting Genitourinary: Denies: Frequency, Hematuria, Incontinence Musculoskeletal: Denies: Arthralgia, Back pain, Gout Skin: Reports: Bruising, Change in color. Denies: Change in hair/nails, Lesions, Pruritus, Rash Neurological: Denies: Abnormal gait, Confusion, Headache, Numbness Psychiatric: Denies: Anxiety Hematological/Lymphatic: Reports: Easy bruising. Denies: Anemia, Blood Clots, Easy bleeding, Swollen glands Past Medical History - SOCIAL HISTORY Smoking Status: Light tobacco smoker (<10/day) - RESPIRATORY Hx Respiratory Disorders: Yes Hx Asthma: Yes - CARDIOVASCULAR Hx Cardio Disorders: Yes Comment:: High cholesterol - NEURO Hx Neuro Disorders: Yes Hx Headaches: Yes - GI Hx GI Disorders: Yes Hx Reflux: Yes - Hx Genitourinary Disorders: No - ENDOCRINE Hx Endocrine Disorders: No - MUSCULOSKELETAL Hx Musculoskeletal Disorders: No - PSYCH Hx Psych Problems: Yes Hx Anxiety: Yes Hx Depression: Yes - HEMATOLOGY/ONCOLOGY Hx Hematology/Oncology Disorders: No Family Medical History Any Significant Family History?: Yes Hx Cancer: Grandparents *Cancer Comment: Uncle-colon Hx Stroke: Mother Physical Exam - General General Appearance: Alert, Oriented x3, Cooperative, No acute distress - Head Head exam: Normal inspection - Eye Eye exam: Normal appearance, PERRL, EOMI Pupils: Normal accommodation - ENT ENT exam: Normal exam, Mucous membranes moist, Normal external ear exam, Normal orophraynx Ear exam: Normal external inspection. negative: External canal tenderness Nasal Exam: Normal inspection. negative: Discharge, Sinus tenderness Mouth exam: Normal external inspection, Tongue normal Teeth exam: Normal inspection. negative: Dental caries Throat exam: Normal inspection. negative: Tonsillar erythema, Tonsillar exudate - Neck Neck exam: Normal inspection, Full ROM. negative: Tenderness - Respiratory Respiratory exam: Normal lung sounds bilaterally. negative: Respiratory distress - Cardiovascular Cardiovascular Exam: Regular rate, Normal rhythm, Normal heart sounds - GI/Abdominal GI/Abdominal exam: Soft, Normal bowel sounds, Tenderness, Other (ecchymosis on llq abdominal wall) - Rectal Rectal exam: Deferred - exam: Deferred - Extremities Extremities exam: Normal inspection, Full ROM, Normal capillary refill. negative: Tenderness Image of Full Body: 1 - ecchymosis 2 - ecchymosis - Back Back exam: Reports: Normal inspection, Full ROM. Denies: Muscle spasm, Rash noted, Tenderness - Neurological Neurological exam: Alert, Normal gait, Oriented X3, Reflexes normal - Psychiatric Psychiatric exam: Normal affect, Normal mood - Skin Skin exam: Dry, Intact, Normal color, Warm Course Vital Signs 06/27/19 08:35 Temperature 98.3 F Pulse Rate 85 Respiratory 18 Rate Blood Pressure 112/75 Pulse Ox 99 - Reevaluation(s) Reevaluation #1: 06/27/19 10:41 ct is neg. blood work normal Medical Decision Making - Lab Data Result diagrams: 06/27/19 09:00 06/27/19 09:00 Disposition Disposition: Discharge Clinical Impression: Abdominal contusion Qualifiers: Encounter type: initial encounter Qualified Code(s): S30.1XXA - Contusion of abdominal wall, initial encounter Disposition: Home, Self-Care Condition: (1) Good Instructions: Contusion in Adults (ED) Additional Instructions: follow up with family doctor. return sooner if worse. moist heat to abdominal wall. Forms: Patient Portal Access, Return to Work/School Quality - Quality Measures Quality Measures: N/A - Blood Pressure Screening Does Patient Have Any of the Following: No Blood Pressure Classification: Normal BP Reading Systolic Measurement: 112 Diastolic Measurement: 75 Screening for High Blood Pressure: < Normal BP, F/U Not Required > [G8783]
[2019-06-27 09:11] LABS: ABSOLUTE NEUTROPHIL COUNT 4.49; BASO % 0.4 % (0-6); EOS % 3.2 % (0-6); HEMATOCRIT 42.2 % (35.0-47.0); HEMOGLOBIN 13.6 gm/dl (11.6-16.0); LYMPH % 35.4 % (16-45); MEAN CELL VOLUME 92.7 fl (81-97); MEAN CORPUSCULAR HEMOGLOBIN 29.9 pg (27-33); MEAN CORPUSCULAR HGB CONC 32.2 g/dl (32-36); MEAN PLATELET VOLUME 10.3 fl (7.4-10.4); PLATELET COUNT 308 K/uL (130-400); RED BLOOD COUNT 4.55 M/uL (3.80-5.40); RED CELL DISTRIBUTION WIDTH 12.5 % (11.5-14.5); WHITE BLOOD COUNT W/O DIFF 8.5 K/uL (4.2-12.2)
[2019-06-27 09:18] LABS: BLOOD UREA NITROGEN 10 mg/dL (6-20); CREATININE 0.8 mg/dL (0.5-0.9); EST GLOMERULAR FILTRATION RATE > 60 mL/min
[2019-06-27 09:20] LABS: GLUCOSE,RANDOM 104 mg/dL (74-109)
--- NOTE | 2019-06-27 10:35 | CT SCAN REPORT ---
EXAMINATION: CT Abdomen and Pelvis with IV Contrast EXAM DATE: 06/27/2019 10:08 AM TECHNIQUE: CT imaging of the abdomen and pelvis was performed with intravenous contrast. Coronal and sagittal images were reconstructed. IV Contrast: The amount and type of contrast are recorded in the medical record. INDICATION: injury COMPARISON: 01/30/2018 ENCOUNTER: Not applicable CT ABDOMEN AND PELVIS FINDINGS: Lung Bases: Included extent of the lung bases are clear. Hepatobiliary: The liver has a normal size with a smooth surface. The hepatic and portal veins appear patent. The gallbladder is absent. There is no biliary dilatation. Pancreas: The pancreas is normal. Spleen: The spleen is not enlarged. Adrenals: The adrenal glands are normal. Kidneys, Ureters, & Bladder: Both kidneys have a normal size and there is no hydronephrosis. Probable bilateral renal cysts. Both ureters have a normal caliber and the urinary bladder is unremarkable. Gastrointestinal: The stomach and small bowel are normal with no obstruction or inflammation. Normal appendix. Sigmoid diverticulosis. No diverticulitis Reproductive Organs: The uterus is absent. Lymphatic System: There is no adenopathy within the abdomen or pelvis. Vasculature: Normal caliber abdominal aorta. Peritoneum: No free fluid, free air, or inflammation Abdominal Wall & Musculoskeletal: No suspicious bone lesions. Stable bone island left superior pubic ramus IMPRESSION: 1. No acute abnormality 2. Cholecystectomy 3. Probable bilateral renal cysts too small to characterize 4. Sigmoid diverticulosis 5. Hysterectomy 6. Stable bone island left superior pubic ramus Dictated by: Pepito Burton MD on 06/27/2019 10:26 AM. .
== END 2019-06-27 10:59 | disposition home or self-care (01) ==
LOC: ER 08:32
DX: S30.1XXA Contusion of abdominal wall, initial encounter (principal); W01.0XXA Fall on same level from slipping, tripping and stumbling without subsequent striking against object, initial encounter; Y92.009 Unspecified place in unspecified non-institutional (private) residence as the place of occurrence of the external cause
CPT/HCPCS: 74177; 80048; 85025; 99284